=== PATIENT | female | born 1985 | race Caucasian/White ===

== ENCOUNTER 2020-03-06 03:02 | Outpatient (CLI) | payer BC, SELFPAY ==
[2020-03-06 09:48] LABS: Abs Immature Grans 0.03 k/cumm (0.0-0.09); Absolute Basophil Count 0.02 k/cumm (0.0-0.2); Absolute Eosinophil Count 0.14 k/cumm (0.0-0.7); Absolute Lymphocyte Count 2.16 k/cumm (1.2-3.4); Absolute Monocyte Count 0.65 k/cumm (0.11-0.7); Absolute Neutrophil Count 5.26 k/cumm (1.2-6.7); Basophils % 0.2; Eosinophils % 1.7; HCT 42.9 % (36.0-46.0); HGB 14.4 g/dL (12.0-15.5); Immature Grans % 0.4 %; Lymphocytes % 26.2; Mean Corp. HGB Concentration 33.6 g/dL (32.0-36.0); Mean Corpuscular Hemoglobin 30.8 pg (27.0-33.0); Mean Corpuscular Volume 91.9 fL (80-95); Mean Platelet Volume 10.5 fL (8.0-11.0); Monocytes % 7.9; Neutrophils % 63.6; Platelet Count 295 x1000/uL (130-400); RBC 4.67 m/cumm (4.00-5.20); RBC Distribution Width 13.1 % (11.7-14.6); White Blood Cell Count 8.26 k/cumm (4.4-10.8)
[2020-03-06 09:57] LABS: Hemoglobin A1C 5.5 % (3.8-5.6)
[2020-03-06 10:15] LABS: Mono Screening Negative (Negative)
[2020-03-06 11:40] LABS: ALT 79 U/L (14-59); AST 55 U/L (15-37); Albumin 3.9 g/dL (3.4-5.0); Alkaline Phosphatase 72 U/L (46-116); Anion Gap 9.6 mmol/L (3-11); BUN 12 mg/dL (7-18); Bilirubin, Total 0.6 mg/dL (0.2-1.0); CO2 24.4 mmol/L (21.0-32.0); Calcium 8.7 mg/dL (8.5-10.1); Calculated LDL 88 mg/dL (<100); Chloride 107 mmol/L (98-107); Cholesterol 174 mg/dL (<200); Glucose 92 mg/dL (74-106); HDL Cholesterol 66 mg/dL (40-60); Potassium 4.4 mmol/L (3.5-5.1); Sodium 141 mmol/L (136-145); Total Protein 7.4 g/dL (6.4-8.2); Triglyceride 102 mg/dL (<150)
[2020-03-09 06:27] LABS: Vitamin D 25 Total 16.7 ng/ml (30-100)
[2020-03-09 14:49] LABS: Lyme Ab w Rflx to Lyme Confirm Negative (Negative)
== END 2020-03-06 03:22 ==
PROVIDERS: PCP Nurse Practitioner Family; Visit Provider Nurse Practitioner Family
DX: R53.83 Other fatigue (principal); K52.9 Noninfective gastroenteritis and colitis, unspecified; K90.89 Other intestinal malabsorption; Z83.3 Family history of diabetes mellitus
CPT/HCPCS: 36415; 80053; 80061; 82306; 83036; 85025; 86308; 86618

== ENCOUNTER 2021-04-13 16:27 | Outpatient (REF) | payer OTHER, SELFPAY ==
[2021-04-15 12:41] LABS: COVID-19 RT-PCR UVMMC Result Negative (Negative)
== END 2021-04-13 16:28 | disposition home or self-care (01) ==
LOC: LBN 16:27
PROVIDERS: PCP Nurse Practitioner Family; Visit Provider Nurse Practitioner Family
DX: Z20.822 Contact with and (suspected) exposure to COVID-19 (principal); J06.9 Acute upper respiratory infection, unspecified
CPT/HCPCS: U0003

== ENCOUNTER 2023-07-20 19:25 | Outpatient (CLI) | payer MEDICAID, SELFPAY ==
[2023-07-20 17:18] LABS: Vitamin D 25 Total 36.7 ng/mL (30-100)
[2023-07-20 18:46] LABS: Ferritin 24 ng/mL (8-252); Vitamin B12 1393 pg/mL (193-986)
[2023-07-20 18:56] LABS: Folate > 20.0 ng/mL (8.6-20.0)
== END 2023-07-20 19:26 | disposition home or self-care (01) ==
LOC: LBO 19:30
PROVIDERS: PCP Nurse Practitioner Family; Visit Provider Nurse Practitioner Family
DX: E83.10 Disorder of iron metabolism, unspecified (principal); Z98.84 Bariatric surgery status
CPT/HCPCS: 36415; 82306; 82607; 82728; 82746